=== PATIENT | female | born 1995 | race Caucasian/White ===

== ENCOUNTER 2020-01-06 03:59 | Inpatient (IN) | payer BC ==
[~2020-01-06 03:59] MED LIST: Bupivacaine 0.25% 10 ML SDV ONE
[2020-01-06] MEDS ORDERED: Lidocaine 1% 50 ML MDV INJECT ONE (04:56)
[2020-01-06] MEDS ORDERED: Nalbuphine 10 MG/ML Syringe IVPUSH PRN (04:56)
[2020-01-06] MEDS ORDERED: Sodium Chloride 0.9% 10 ML Syringe FLUSH PRN (04:56)
[2020-01-06] MEDS ORDERED: Oxytocin/Lactated Ringers 10 UNIT/1,000 ML BAG IV SCH ×2 (05:00)
[2020-01-06] MEDS ORDERED: ePHEDrine 50 MG/ML SDV IVPUSH PRN (07:28)
[2020-01-06] MEDS ORDERED: diphenhydrAMINE 50 MG/ML SDV IVPUSH PRN (07:28)
[2020-01-06] MEDS ORDERED: fentaNYL 100 MCG/2 ML SDV EPIDUR PRN (07:28)
[2020-01-06] MEDS ORDERED: Ondansetron 4 MG/2 ML SDV IVPUSH PRN (09:04)
[2020-01-06] MEDS: Lactated Ringers 1,000 ML IV SCH ×4 (12:39→21:53)
[2020-01-06] MEDS: Bupivacaine/fentaNYL/NS 100 ML Bag EPIDUR PRN ×2 (13:12→22:36)
--- NOTE | 2020-01-06 13:32 | PCM.PREANE ---
Preanesthetic Assessment - Procedure Proposed Procedure: epidural - Anesthesia/Transfusion/Family Hx Anesthesia History: No Prior Anesthesia Family History of Anesthesia Reaction: No Transfusion History: No Prior Transfusion(s) - Review of Systems General: Fatigue Pulmonary: No Symptoms Cardiovascular: No Symptoms Gastrointestinal: Abdominal Pain (labor) Neurological: No Symptoms Other: Reports: None - Physical Assessment Vital Signs: Last Vital Signs Temp 36.3 C 01/06/20 04:04 Pulse 92 01/06/20 04:04 Resp 16 01/06/20 04:04 BP 129/78 01/06/20 04:04 Pulse Ox 100 01/06/20 04:04 Height: 1.63 m Weight: 62.868 kg ASA Class: 2 Mental Status: Alert & Oriented x3 Airway Class: Mallampati = 1 Dentition: Reports: Normal Dentition Thyro-Mental Finger Breadths: 3 Mouth Opening Finger Breadths: 3 ROM/Head Extension: Full Lungs: Clear to Auscultation, Normal Respiratory Effort Cardiovascular: Regular Rate, Regular Rhythm - Lab Values: Laboratory Last Values WBC 12.15 K/mm3 (3.98-10.04) H 01/06/20 05:16 RBC 4.47 M/mm3 (3.98-5.22) 01/06/20 05:16 Hgb 12.8 gm/dl (11.2-15.7) 01/06/20 05:16 Hct 37.7 % (34.1-44.9) 01/06/20 05:16 MCV 84.3 fl (79.4-94.8) 01/06/20 05:16 MCH 28.6 pg (25.6-32.2) 01/06/20 05:16 MCHC 34.0 g/dl (32.2-35.5) 01/06/20 05:16 RDW Std Deviation 40.2 fL (36.4-46.3) 01/06/20 05:16 Plt Count 252 K/mm3 (182-369) 01/06/20 05:16 MPV 10.6 fl (9.4-12.3) 01/06/20 05:16 Neut % (Auto) 81.8 % (34.0-71.1) H 01/06/20 05:16 Lymph % (Auto) 9.5 % (19.3-51.7) L 01/06/20 05:16 [place] % (Auto) 6.4 % (4.7-12.5) 01/06/20 05:16 Eos % (Auto) 1.7 (0.7-5.8) 01/06/20 05:16 Baso % (Auto) 0.3 % (0.1-1.2) 01/06/20 05:16 Neut # (Auto) 9.93 K/mm3 (1.56-6.13) H 01/06/20 05:16 Lymph # (Auto) 1.15 K/mm3 (1.18-3.74) L 01/06/20 05:16 [place] # (Auto) 0.78 K/mm3 (0.24-0.36) H 01/06/20 05:16 Eos # (Auto) 0.21 K/mm3 (0.04-0.36) 01/06/20 05:16 Baso # (Auto) 0.04 K/mm3 (0.01-0.08) 01/06/20 05:16 Manual Slide Review Abnormal smear 01/06/20 05:16 Membrane Rupture Positive H 01/06/20 04:15 SARS-CoV-2 RNA (FABRICIO) Negative (NEGATIVE) 01/06/20 05:05 Blood Type B POSITIVE 01/06/20 05:16 Gel Antibody Screen Negative 01/06/20 05:16 - Allergies Allergies/Adverse Reactions: Allergies Allergy/AdvReac Type Severity Reaction Status Date / Time Cephalosporins Allergy Hives Verified 01/06/20 04:26 Penicillins Allergy Hives Verified 01/06/20 04:26 - Anesthesia Plan Pre-Op Medication Ordered: None - Acknowledgements Anesthesia Type Planned: Epidural Pt an Appropriate Candidate for the Planned Anesthesia: Yes Alternatives and Risks of Anesthesia Discussed w Pt/Guardian: Yes Pt/Guardian Understands and Agrees with Anesthesia Plan: Yes PreAnesthesia Questionnaire - Past Health History Medical/Surgical History: Denies Medical/Surgical History HEENT History: Reports: Impaired Vision Gastrointestinal History: Reports: GERD 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: - SUBSTANCE USE Smoking Status *Q: Never Smoker Second Hand Smoke Exposure: No Recreational Drug Use History: No - HOME MEDS Home Medications: Home Meds Ondansetron [Ondansetron Odt] 4 mg PO Q6HR PRN 01/06/20 [History] Vits #93/Iron Fum/FA [ Formula Tablet] 1 tab PO DAILY 01/06/20 [History] - CURRENT (IN HOUSE) MEDS Current Meds: Current Medications Diphenhydramine HCl (Benadryl) 25 mg IVPUSH Q6H PRN PRN Reason: pruritis Ephedrine Sulfate (Ephedrine Sulfate) 5 mg IVPUSH ASDIRECTED PRN PRN Reason: Hypotension Fentanyl (Sublimaze) 100 mcg EPIDUR Q3H PRN PRN Reason: Pain Last Admin: 01/06/20 13:11 Dose: 100 mcg Documented by: Fentanyl/Bupivacaine HCl (Fentanyl/Bupivacaine/Ns 2 Mcg-0.125% 100 Ml) 100 ml EPIDUR ASDIRECTED PRN PRN Reason: Pain Last Admin: 01/06/20 13:12 Dose: 100 ml Documented by: Lactated Ringer's (Ringers, Lactated) 1,000 mls @ 100 mls/hr IV ASDIRECTED ELLY Last Admin: 01/06/20 13:12 Dose: 999 mls/hr Documented by: Oxytocin/Lactated Ringer's (Pitocin In Lr 10 Units/1,000 Ml) 10 unit in 1,000 mls @ 12 mls/hr IV TITRATE ELLY; Protocol Oxytocin/Lactated Ringer's (Pitocin In Lr 10 Units/1,000 Ml) 10 unit in 1,000 mls @ 500 mls/hr IV .CONTINUOUS ELLY Nalbuphine HCl (Nubain) 10 mg IVPUSH Q2H PRN PRN Reason: Pain Ondansetron HCl (Zofran) 4 mg IVPUSH Q8H PRN PRN Reason: Nausea Sodium Chloride (Saline Flush) 10 ml FLUSH ASDIRECTED PRN PRN Reason: Keep Vein Open Discontinued Medications Lidocaine HCl (Xylocaine 1%) 1 ml INJECT ONETIME ONE Stop: 01/06/20 04:57
[2020-01-06] MEDS ORDERED: Lidocaine 1% 50 ML MDV ONE (23:19)
--- NOTE | 2020-01-06 23:54 | PCM.LDHP ---
L&D History of Present Illness - General Date of Service: 01/06/20 Admit Problem/Dx: Patient Status Order with Admit Dx/Problem 01/06/20 04:04 Patient Status [ADT] Routine 01/06/20 04:57 Patient Status [ADT] Routine Admission Diagnosis/Problem Admission Diagnosis/Problem 01/06/20 23:45 Mahnaz is a 24-year-old 1 para 0 white female who was admitted to labor and delivery 01/06/2020 at 37-1/7 weeks gestational age with an CECILIO of 01/26/2020 with spontaneous rupture membranes and early labor with cervical change. Source of Information: Patient History Limitations: Reports: No Limitations - History of Present Illness Introduction:: Mahnaz is a 24-year-old 1 para 0 white female who was admitted to labor and delivery 01/06/2020 at 37-1/7 weeks gestational age with an CECILIO of 01/26/2020 with spontaneous rupture membranes and early labor with some cervical change. She is gone from 2 cm on last evaluation clinic to 3 cm now. heart tones are reassuring. 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 CECILIO 01/26/2020 as based upon a certain last menstrual started 04/21/2019 and supported by at least 2 ultrasounds done on 06/28/2019 and 09/08/2019. course was relatively unremarkable. She is group B strep negative. [place] noninvasive screen was negative for trisomy 21, 18 and 13. Female was the identified gender identity. First visit was on 2028-5/7 weeks gestational age. She was seen on a regular basis throughout the . Her vital signs remained stable and fundal height growth was appropriate. Her weight increased from 114 to 146 pounds during the course of the . Patient had Tdap given on 11/29/2019. She has some nausea vomiting early in but this was manageable. [place] depression screen score was 3/30 on 09/14/2019. She desires epidural in labor delivery. She had an abnormal 1 hour GTT and 3-hour GTT was stopped after 2 normal evaluations secondary to nausea and emesis. She had menarche at age 14. Cycles q. 27 days. Last menstrual period was 04/21/2019. Cycles are regular and no control is being used at the time of conception. She is rubella immune. RPR was nonreactive. Tdap was given on 11/29/2019. Laboratory testing in shows a B+ blood type with a negative antibody screen. First hemoglobin is 14.0 g/dL and platelets are 321,000. She is rubella immune. RPR is nonreactive. Hepatitis B surface antigen and HIV assays were both negative. Chlamydia and gonorrhea tests were both negative. Pre-quell was negative. Second trimester labs showed a hemoglobin of 12.3 g/dL and platelets are 319,000 with a 1 hour GTT of 148. Her fasting blood sugar was 76 and her 1 hour was 64 on her 3-hour GTT. Group B strep screen was negative. RPR 10/17/2019 was nonreactive. Allergies: Cephalosporins and penicillins Medications: 1. Zofran as needed for nausea early in the 2. gummy bears daily. Past medical history: 1. Allergies to penicillin and cephalosporins 2. Asthma as a childis now outgrown this Past surgical history: Unremarkable Family history: Mother is alive and well as is her father. Maternal grandmother is alive with hypertension. Maternal grandfather is secondary to COPD, was a smoker and had diabetes. Paternal grandmother is alive with heart disease. Paternal grandfather is alive and well. There is no known family history of cancer, bleeding or blood clotting disorders, anesthesia related issu es or related problems. Review of systems: In general patient has no complaints other than SROM and early contractions. Skin: Negative Lungs: No infectious symptoms or shortness of breath Cardiovascular: No chest pain or exercise intolerance Breasts: No lumps, changes in size, pain, dimpling, discharge or axillary or supraclavicular concerns. GI: Negative : Changes associated with and now labor. Musculoskeletal: Negative Neurological: Negative Sickle exam: In general the patient is well-developed, well-nourished, pleasant female of stated age in no acute distress. On last evaluation clinic. Fundal height was 37 cm. Blood pressure is 118/58. Weight was 134.2 pounds and he was in a vertex presentation. Skin is warm dry without lesions. HEENT, neck and back within normal limits. Lungs are clear with good breath sounds in all lung peter. Cardiovascular exam shows regular and rhythm without murmurs. Breast exam deferred have been done at first visit and found to be normal. Abdomen is gravid with last fundal height in clinic at 37 cm. Genital exam per digital on admission was 3 cm, 90% effaced, 0 station, mid position, vertex presentation, soft Extremities and neurological exam are grossly within normal limits. 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: Reports: Social & Family History - Family History Family Medical History: Noncontributory - Tobacco Use Smoking Status *Q: Never Smoker Second Hand Smoke Exposure: No - Caffeine Use Caffeine Use: Reports: None - Recreational Drug Use Recreational Drug Use: No H&P Review of Systems - Review of Systems: Review Of Systems: See Below L&D Exam - Exam Exam: See Below - Vital Signs Vital Signs: Last Vital Signs Temp 36.3 C 01/06/20 04:04 Pulse 92 01/06/20 04:04 Resp 16 01/06/20 04:04 BP 129/78 01/06/20 04:04 Pulse Ox 100 01/06/20 04:04 Weight: 62.868 kg - Patient Data Lab Results Last 24 hrs: Laboratory Results - last 24 hr 01/06/20 01/06/20 01/06/20 Range/Units 04:15 05:05 05:16 WBC 12.15 H (3.98-10.04) K/mm3 RBC 4.47 (3.98-5.22) M/mm3 Hgb 12.8 (11.2-15.7) gm/dl Hct 37.7 (34.1-44.9) % MCV 84.3 (79.4-94.8) fl MCH 28.6 (25.6-32.2) pg MCHC 34.0 (32.2-35.5) g/dl RDW Std Deviation 40.2 (36.4-46.3) fL Plt Count 252 (182-369) K/mm3 MPV 10.6 (9.4-12.3) fl Neut % (Auto) 81.8 H (34.0-71.1) % Lymph % (Auto) 9.5 L (19.3-51.7) % [place] % (Auto) 6.4 (4.7-12.5) % Eos % (Auto) 1.7 (0.7-5.8) Baso % (Auto) 0.3 (0.1-1.2) % Neut # (Auto) 9.93 H (1.56-6.13) K/mm3 Lymph # (Auto) 1.15 L (1.18-3.74) K/mm3 [place] # (Auto) 0.78 H (0.24-0.36) K/mm3 Eos # (Auto) 0.21 (0.04-0.36) K/mm3 Baso # (Auto) 0.04 (0.01-0.08) K/mm3 Manual Slide Review Abnormal smear Membrane Rupture Positive H SARS-CoV-2 RNA (FABRICIO) Negative (NEGATIVE) Blood Type Gel Antibody Screen 01/06/20 Range/Units 05:16 WBC (3.98-10.04) K/mm3 RBC (3.98-5.22) M/mm3 Hgb (11.2-15.7) gm/dl Hct (34.1-44.9) % MCV (79.4-94.8) fl MCH (25.6-32.2) pg MCHC (32.2-35.5) g/dl RDW Std Deviation (36.4-46.3) fL Plt Count (182-369) K/mm3 MPV (9.4-12.3) fl Neut % (Auto) (34.0-71.1) % Lymph % (Auto) (19.3-51.7) % [place] % (Auto) (4.7-12.5) % Eos % (Auto) (0.7-5.8) Baso % (Auto) (0.1-1.2) % Neut # (Auto) (1.56-6.13) K/mm3 Lymph # (Auto) (1.18-3.74) K/mm3 [place] # (Auto) (0.24-0.36) K/mm3 Eos # (Auto) (0.04-0.36) K/mm3 Baso # (Auto) (0.01-0.08) K/mm3 Manual Slide Review Membrane Rupture SARS-CoV-2 RNA (FABRICIO) (NEGATIVE) Blood Type B POSITIVE Gel Antibody Screen Negative Result Diagrams: 01/06/20 05:16 Problem List Initiated/Reviewed/Updated: Yes Orders Last 24hrs: Active Orders 24 hr Category Date Time Status Patient Status Manage Transfer [TRANSFER] Routine ADT 01/06/20 23:36 Ordered Patient Status [ADT] Routine ADT 01/06/20 04:57 Active Activity as Tolerated [RC] PFP Care 01/06/20 04:56 Active Antiembolic Devices [RC] PER UNIT ROUTINE Care 01/06/20 13:09 Active Communication Order [RC] ASDIRECTED Care 01/06/20 04:56 Active Notify Provider [RC] ASDIRECTED Care 01/06/20 07:28 Active Notify Provider [RC] PFP Care 01/06/20 04:56 Active Notify Provider [RC] PRN Care 01/06/20 04:56 Active Peripheral IV Care [RC] Q2HR Care 01/06/20 04:57 Active Urinary Catheter Assessment [RC] ASDIRECTED Care 01/06/20 13:10 Active Urinary Catheter Insertion [Insert Urinary Catheter] [ Care 01/06/20 13:15 Ordered OM.PC] Q24H Regular Diet [DIET] Diet 01/06/20 Breakfast Active RAPID PLASMA REAGIN,RPR [CHEM] Routine Lab 01/06/20 04:56 Ordered Bupivacaine/fentaNYL/NS [fentaNYL/Bupivacaine/NS 2 MCG- Med 01/06/20 07:28 Active 0.125% 100 ML] 100 ml EPIDUR ASDIRECTED PRN Lactated Ringers [Ringers, Lactated] 1,000 ml Med 01/06/20 05:00 Active IV ASDIRECTED Nalbuphine [Nubain] Med 01/06/20 04:56 Active 10 mg IVPUSH Q2H PRN Ondansetron [Zofran] Med 01/06/20 09:04 Active 4 mg IVPUSH Q8H PRN Oxytocin/Lactated Ringers [Pitocin in LR 10 Units/1,000 Med 01/06/20 05:00 Active ML] 10 unit in 1,000 ml IV .CONTINUOUS Oxytocin/Lactated Ringers [Pitocin in LR 10 Units/1,000 Med 01/06/20 05:00 Active ML] 10 unit in 1,000 ml IV TITRATE Sodium Chloride 0.9% [Saline Flush] Med 01/06/20 04:56 Active 10 ml FLUSH ASDIRECTED PRN diphenhydrAMINE [Benadryl] Med 01/06/20 07:28 Active 25 mg IVPUSH Q6H PRN ePHEDrine [ePHEDrine sulfate] Med 01/06/20 07:28 Active 5 mg IVPUSH ASDIRECTED PRN fentaNYL [Sublimaze] Med 01/06/20 07:28 Active 100 mcg EPIDUR Q3H PRN Electronic Heart Tones Ext w TOCO [WOMSER] Oth 01/06/20 04:56 Ordered Routine Electronic Heart Tones Internal [WOMSER] Per Unit Oth 01/06/20 04:56 Ordered Routine Peripheral IV Insertion Adult [OM.PC] Routine Oth 01/06/20 04:56 Ordered SCD [Sequential Compression Device] [OM.PC] Routine Oth 01/06/20 13:08 Ordered Resuscitation Status Routine Resus Stat 01/06/20 04:04 Ordered Medication Orders Diphenhydramine HCl (Benadryl) 25 mg IVPUSH Q6H PRN PRN Reason: pruritis Ephedrine Sulfate (Ephedrine Sulfate) 5 mg IVPUSH ASDIRECTED PRN PRN Reason: Hypotension Fentanyl (Sublimaze) 100 mcg EPIDUR Q3H PRN PRN Reason: Pain Last Admin: 01/06/20 13:11 Dose: 100 mcg Documented by: AJAY Fentanyl/Bupivacaine HCl (Fentanyl/Bupivacaine/Ns 2 Mcg-0.125% 100 Ml) 100 ml EPIDUR ASDIRECTED PRN PRN Reason: Pain Last Admin: 01/06/20 22:36 Dose: 100 ml Documented by: Admin: 01/06/20 13:12 Dose: 100 ml Documented by: AJAY Lactated Ringer's (Ringers, Lactated) 1,000 mls @ 100 mls/hr IV ASDIRECTED ELLY Last Admin: 01/06/20 21:53 Dose: 100 mls/hr Documented by: Infusion: 01/06/20 21:53 Dose: 100 mls/hr Documented by: Admin: 01/06/20 14:35 Dose: 100 mls/hr Documented by: Infusion: 01/06/20 14:13 Dose: 999 mls/hr Documented by: Admin: 01/06/20 13:12 Dose: 999 mls/hr Documented by: Infusion: 01/06/20 13:12 Dose: 999 mls/hr Documented by: Admin: 01/06/20 12:39 Dose: 999 mls/hr Documented by: AJAY Oxytocin/Lactated Ringer's (Pitocin In Lr 10 Units/1,000 Ml) 10 unit in 1,000 mls @ 12 mls/hr IV TITRATE ELLY; Protocol Last Titration: 01/06/20 23:12 Dose: 166.5 munits/min, 999 mls/hr Documented by: Titration: 01/06/20 20:36 Dose: 6 munits/min, 36 mls/hr Documented by: Titration: 01/06/20 20:21 Dose: 4 munits/min, 24 mls/hr Documented by: Titration: 01/06/20 18:23 Dose: 2 munits/min, 12 mls/hr Documented by: Titration: 01/06/20 17:00 Dose: 3 munits/min, 18 mls/hr Documented by: Admin: 01/06/20 15:05 Dose: 2 munits/min, 12 mls/hr Documented by: AJAY Oxytocin/Lactated Ringer's (Pitocin In Lr 10 Units/1,000 Ml) 10 unit in 1,000 mls @ 500 mls/hr IV .CONTINUOUS ELLY Nalbuphine HCl (Nubain) 10 mg IVPUSH Q2H PRN PRN Reason: Pain Ondansetron HCl (Zofran) 4 mg IVPUSH Q8H PRN PRN Reason: Nausea Sodium Chloride (Saline Flush) 10 ml FLUSH ASDIRECTED PRN PRN Reason: Keep Vein Open Assessment/Plan Comment:: 1. 37-7-week intrauterine , SROM, early labor. CECILIO set at 01/26/2020. 2. Patient desires epidural in labor living 3. Patient plans to breast-feed 4. Low risk 5. [place] noninvasive screen was negative for trisomy 21, 18, 13. Female infant was identified on gender evaluation. 6. 3-hour GTT was aborted after 2 normal evaluations because of patient's nausea. 7. Group B strep screen negative 8. Patient is rubella immune. 9. Tdap given on 11/29/2019 Plan: 1. Anticipate normal spontaneous vaginal delivery 2. Epidural per patient desire 3. RPR, COVID testing, CBC upon admission per protocol 4. Support breast-feeding plan 5. Routine labor care.
--- NOTE | 2020-01-07 | PCM.SN.2 ---
- Free Text/Narrative Note: Delivery note: Mahnaz is a 24-year-old 1 now para 1-0-0-1 white female admitted on 01/06/2020 in active labor with spontaneous rupture membranes with resultant clear amniotic fluid. CECILIO is 01/26/2020 by LMP supported by 2 ultrasounds and course. She progressed in labor slowly over the first 12 hours, epidural was placed after some cervical dilation. Intrauterine pressure catheter was placed to evaluate contractions because of lack of adequate labor progress. With this contractions are felt to be suboptimal and Pitocin augmentation occurred. She progressed more rapidly and at approximately 2245 hrs. patient became completely dilated. She pushed for approximately 20 minutes and delivered a viable, draper, female infant with Apgars of 8 and 9, weight of 5 pounds 11 ounces, length of 19-1/2 inches in a direct occiput anterior. Delivery was unremarkable. Baby was placed on mom's abdomen, dried and nose mouth were bulb suctioned per routine. Cord is off to pulsate for 2 to 3 minutes. Umbilical cord had 3 vessels. Cord was then clamped and cut with by the baby's father Quentin. Cord blood was obtained. Pitocin was increased to 500 cc an hour to facilitate increase in uterine tone and decrease likelihood of bleeding. Second-degree laceration was identified and was repaired in a routine fashion using 3-0 Monocryl. The area of the perineum was infiltrated lidocaine 1% and a dosage of approximately 8 cc. Patient tolerated procedure well. Placenta delivered in a Velez presentation, appeared intact and complete and was discarded per patient desire. Estimated blood loss was 100 cc. Patient plans to breast-feed. Condition: Good.
[2020-01-07] MEDS ORDERED: Acetaminophen 325 MG Tab PO PRN (00:44)
[2020-01-07] MEDS ORDERED: Docusate Sodium 100 MG Cap PO PRN (00:44)
[2020-01-07] MEDS ORDERED: Benzocaine/Menthol 20%-0.5% Spray 56 GM Canister TOP PRN (00:44)
[2020-01-07] MEDS ORDERED: Witch Hazel Medicated Pads 40/Jar TOP PRN (00:44)
[2020-01-07] MEDS: Ibuprofen 600 MG Tab PO PRN ×4 (01:04→19:22)
--- NOTE | 2020-01-07 06:38 | PCM.SN.2 ---
- Free Text/Narrative Note: day 1: note: Patient is doing well in the period. Minimal lochia, voiding well, am bulated without problems. Nursing without concerns. Patient is afebrile, vital signs are stable Abdomen is flat, soft, uterus is below the umbilicus and is firm and nontender. Legs are nontender. Assessment: recovery going well. Plan: Routine care. Patient be discharged home within the next 24-48 hours.
[2020-01-07] MEDS: Prenatal Multivitamin with Calcium/Folic Acid/Iron Tab PO SCH (12:37)
--- NOTE | 2020-01-07 21:45 | PCM48HPAN ---
Post Anesthesia Note - EVALUATION WITHIN 48HRS OF ANESTHETIC Vital Signs in Normal Range: Yes Patient Participated in Evaluation: Yes Respiratory Function Stable: Yes Airway Patent: Yes Cardiovascular Function Stable: Yes Hydration Status Stable: Yes Pain Control Satisfactory: Yes Nausea and Vomiting Control Satisfactory: Yes Mental Status Recovered: Yes Vital Signs: Last Vital Signs Temp 36.7 C 01/07/20 20:39 Pulse 73 01/07/20 20:39 Resp 14 01/07/20 20:39 BP 106/80 01/07/20 20:39 Pulse Ox 98 01/07/20 20:39 - COMMENTS/OBSERVATIONS Free Text/Narrative:: no anesthesia complications noted
[2020-01-08] MEDS: Ibuprofen 600 MG Tab PO PRN (08:00)
[2020-01-08] MEDS: Prenatal Multivitamin with Calcium/Folic Acid/Iron Tab PO SCH (08:01)
--- NOTE | 2020-01-08 08:24 | PCM.DCSUM1 ---
Discharge Summary - Hospital Course Free Text/Narrative:: Mahnaz is a 24-year-old 1 now para 1-0-0-1 white female admitted on 01/06/2020 in active labor with spontaneous rupture membranes with resultant clear amniotic fluid. CECILIO is 01/26/2020 by LMP supported by 2 ultrasounds and course. She progressed in labor slowly over the first 12 hours, epidural was placed after some cervical dilation. Intrauterine pressure catheter was placed to evaluate contractions because of lack of adequate labor progress. With this contractions are felt to be suboptimal and Pitocin augmentation occurred. She progressed more rapidly and at approximately 2245 hrs. patient became completely dilated. She pushed for approximately 20 minutes and delivered a viable, draper, female with Apgars of 8 and 9, weight of 5 pounds 11 ounces, length of 19-1/2 inches in a direct occiput anterior. Delivery was unremarkable. Baby was placed on mom's abdomen, dried and nose mouth were bulb suctioned per routine. Cord is off to pulsate for 2 to 3 minutes. Umbilical cord had 3 vessels. Cord was then clamped and cut with by the baby's father Quentin. Cord blood was obtained. Pitocin was increased to 500 cc an hour to facilitate increase in uterine tone and decrease likelihood of bleeding. Second-degree laceration was identified and was repaired in a routine fashion using 3-0 Monocryl. The area of the perineum was infiltrated lidocaine 1% and a dosage of approximately 8 cc. Patient tolerated procedure well. Placenta delivered in a Velez presentation, appeared intact and complete and was discarded per patient desire. Estimated blood loss was 100 cc. Patient plans to continue to breast-feed. patient has done well. She has minimal lochia, is voiding well and ambulating without concerns. Breast-feeding is going well. She appears very comfortable with her course and is desiring discharge home. Condition: Good. Diagnosis: Stroke: No - Discharge Data Discharge Date: 01/08/20 Discharge Disposition: Home, Self-Care 01 Condition: Good - Referral to Home Health Primary Care Physician: Walker Marie MD - Patient Instructions Diet: Regular Diet as Tolerated (Nursing diet with increased calories and calcium as recommended) Activity: As Tolerated (No intercourse or tampons until bleeding resolves) Driving: May Drive Today Showering/Bathing: May Shower Showering/Bathing, Other: May take a bath Notify Provider of: Fever, Increased Pain, Swelling and Redness, Nausea and/or Vomiting - Discharge Plan Home Medications: Home Meds Vits #93/Iron Fum/FA [ Formula Tablet] 1 tab PO DAILY 01/06/20 [History] Acetaminophen [Tylenol] 650 mg PO Q4H PRN tablet 01/08/20 [Rx] Docusate Sodium [Colace] 100 mg PO BID PRN cap 01/08/20 [Rx] Ibuprofen [Motrin] 600 mg PO Q4H PRN tablet 01/08/20 [Rx] Patient Handouts: Breast Pumping Tips, and Self-Care, Care After Vaginal Delivery Referrals: Walker Marie MD [Primary Care Provider] - [facility] - Discharge Summary/Plan Comment DC Time >30 min.: No Discharge Summary/Plan Comment: Discharge instructions: 1. Discharge home 2. Diet, activity and follow-up discussed with patient. Recommend nursing diet with increased calories and calcium. 3. Precautions given concern increased pain, bleeding, temperature, signs/symptoms of DVT/PE. 4. Medications per home medication was printed, discussed with and given to the patient. 5. Return to clinic-Dr. Marie-[place], [place] in February 2020. Patient is to call for appointment. Diagnosis: [id number] -delivered Condition: Good - Patient Data Vitals - Most Recent: Last Vital Signs Temp 36.7 C 01/08/20 03:45 Pulse 63 01/08/20 03:45 Resp 13 01/08/20 03:45 BP 113/66 01/08/20 03:45 Pulse Ox 98 01/08/20 03:45 Weight - Most Recent: 62.868 kg Med Orders - Current: Current Medications Acetaminophen (Tylenol) 650 mg PO Q4H PRN PRN Reason: mild pain or fever Benzocaine/Menthol (Dermoplast Pain Relief [place]) 0 gm TOP ASDIRECTED PRN PRN Reason: Perineal Comfort Measure Last Admin: 01/07/20 01:03 Dose: 1 can Documented by: Docusate Sodium (Colace) 100 mg PO BID PRN PRN Reason: Constipation Last Admin: 01/07/20 01:04 Dose: 100 mg Documented by: Ibuprofen (Motrin) 600 mg PO Q4H PRN PRN Reason: Mild pain or fever Last Admin: 01/08/20 08:00 Dose: 600 mg Documented by: Prenat Multivit/Bleckley/Iron/Folic Ac ( Plus Iron) 1 each PO DAILY ELLY Last Admin: 01/08/20 08:01 Dose: Not Given Documented by: Romie Jackson (Mindy) 1 pad TOP ASDIRECTED PRN PRN Reason: Perineal Comfort Measure Last Admin: 01/07/20 01:03 Dose: 1 container Documented by: Discontinued Medications Diphenhydramine HCl (Benadryl) 25 mg IVPUSH Q6H PRN PRN Reason: pruritis Ephedrine Sulfate (Ephedrine Sulfate) 5 mg IVPUSH ASDIRECTED PRN PRN Reason: Hypotension Fentanyl (Sublimaze) 100 mcg EPIDUR Q3H PRN PRN Reason: Pain Last Admin: 01/06/20 13:11 Dose: 100 mcg Documented by: Fentanyl/Bupivacaine HCl (Fentanyl/Bupivacaine/Ns 2 Mcg-0.125% 100 Ml) 100 ml EPIDUR ASDIRECTED PRN PRN Reason: Pain Last Admin: 01/06/20 22:36 Dose: 100 ml Documented by: Lactated Ringer's (Ringers, Lactated) 1,000 mls @ 100 mls/hr IV ASDIRECTED ELLY Last Admin: 01/06/20 21:53 Dose: 100 mls/hr Documented by: Oxytocin/Lactated Ringer's (Pitocin In Lr 10 Units/1,000 Ml) 10 unit in 1,000 mls @ 12 mls/hr IV TITRATE ELLY; Protocol Last Titration: 01/06/20 23:12 Dose: 166.5 munits/min, 999 mls/hr Documented by: Oxytocin/Lactated Ringer's (Pitocin In Lr 10 Units/1,000 Ml) 10 unit in 1,000 mls @ 500 mls/hr IV .CONTINUOUS [facility] Lidocaine HCl (Xylocaine 1%) 1 ml INJECT ONETIME ONE Stop: 01/06/20 04:57 Last Admin: 01/06/20 23:22 Dose: 10 ml Documented by: Lidocaine HCl (Xylocaine 1%) Confirm Administered Dose 50 ml .ROUTE .STK-MED ONE Stop: 01/06/20 23:20 Last Admin: 01/07/20 01:22 Dose: Not Given Documented by: Nalbuphine HCl (Nubain) 10 mg IVPUSH Q2H PRN PRN Reason: Pain Ondansetron HCl (Zofran) 4 mg IVPUSH Q8H PRN PRN Reason: Nausea Sodium Chloride (Saline Flush) 10 ml FLUSH ASDIRECTED PRN PRN Reason: Keep Vein Open
== END 2020-01-08 12:20 | disposition home or self-care (01) | DRG 560 ==
LOC: JD.OB 03:59 → JD.OBCHECK 03:59 → JD.OB 04:57 → OBSVTOIN 23:11 → JD.OB 23:12
PROVIDERS: ADMIT Obstetrics & Gynecology; ATTEND Obstetrics & Gynecology
PROC: 10E0XZZ Delivery of Products of Conception, External Approach (ICD-10-PCS; principal; 2020-01-06)
PROC: 0KQM0ZZ Repair Perineum Muscle, Open Approach (ICD-10-PCS; 2020-01-06)
PROC: 3E0R3BZ Introduction of Anesthetic Agent into Spinal Canal, Percutaneous Approach (ICD-10-PCS; 2020-01-06)
PROC: 00HU33Z Insertion of Infusion Device into Spinal Canal, Percutaneous Approach (ICD-10-PCS; 2020-01-06)
DX: O99.62 Diseases of the digestive system complicating childbirth (principal); K21.9 Gastro-esophageal reflux disease without esophagitis; O70.1 Second degree perineal laceration during delivery; Z20.828 Contact with and (suspected) exposure to other viral communicable diseases; Z37.0 Single live birth; Z3A.37 37 weeks gestation of pregnancy; Z88.1 Allergy status to other antibiotic agents; Z88.0 Allergy status to penicillin
CPT/HCPCS: 01967; 36415; 51702; 59025; 59409; 84112; 85025; 86850; 86900; 86901; A9270-GY; J2001; J2590; J3010; J3490; J7120; U0002

== ENCOUNTER 2021-06-01 10:34 | Inpatient (IN) | payer BC ==
[2021-06-01] MEDS ORDERED: Nalbuphine 10 MG/1 ML Vial IVPUSH PRN (11:28)
[2021-06-01] MEDS ORDERED: Ondansetron 4 MG/2 ML SDV IVPUSH PRN (11:28)
[2021-06-01] MEDS ORDERED: Oxytocin/Lactated Ringers 10 UNIT/1,000 ML BAG IV SCH ×2 (11:30→20:36)
[2021-06-01] MEDS: Lactated Ringers 1,000 ML IV SCH ×2 (11:45→13:50)
[2021-06-01] MEDS ORDERED: fentaNYL 100 MCG/2 ML SDV EPIDUR PRN (12:52)
[2021-06-01] MEDS ORDERED: Bupivacaine/fentaNYL/NS 100 ML Bag EPIDUR PRN (12:52)
[2021-06-01] MEDS ORDERED: diphenhydrAMINE 50 MG/ML SDV IVPUSH PRN (12:52)
[2021-06-01] MEDS ORDERED: ePHEDrine 50 MG/ML SDV IVPUSH PRN (12:52)
[2021-06-01] MEDS ORDERED: Acetaminophen 325 MG Tab PO PRN (20:36)
[2021-06-01] MEDS ORDERED: Docusate Sodium 100 MG Cap PO PRN (20:36)
[2021-06-01] MEDS ORDERED: Hydrocortisone Acetate 25 MG Supp RECTAL PRN (20:36)
[2021-06-01] MEDS ORDERED: Witch Hazel Medicated Pads 40/Jar TOP PRN (20:36)
[2021-06-01] MEDS ORDERED: Benzocaine/Menthol 20%-0.5% Spray 78 GM Cannister TOP PRN (20:36)
[2021-06-01] MEDS ORDERED: Magnesium Hydroxide 400 MG/5 ML Susp 30 ML Cup PO PRN (20:36)
[2021-06-01] MEDS ORDERED: Ibuprofen 600 MG Tab PO PRN (20:36)
[2021-06-01] MEDS ORDERED: Sodium Chloride 0.9% 10 ML Syringe FLUSH SCH (21:00)
[2021-06-02] MEDS ORDERED: Prenatal Multivitamin with Calcium/Folic Acid/Iron Tab PO SCH (09:00)
== END 2021-06-03 16:55 | disposition home or self-care (01) | DRG 560 ==
LOC: JD.OBCHECK 10:34 → JD.OB 10:38 → JD.OBCHECK 11:29 → OBSVTOIN 16:04 → JD.OB 21:03
PROVIDERS: ADMIT Obstetrics & Gynecology; ATTEND Obstetrics & Gynecology
PROC: 10E0XZZ Delivery of Products of Conception, External Approach (ICD-10-PCS; principal; 2021-06-01)
PROC: 10907ZC Drainage of Amniotic Fluid, Therapeutic from Products of Conception, Via Natural or Artificial Opening (ICD-10-PCS; 2021-06-01)
PROC: 0KQM0ZZ Repair Perineum Muscle, Open Approach (ICD-10-PCS; 2021-06-01)
PROC: 3E0R3BZ Introduction of Anesthetic Agent into Spinal Canal, Percutaneous Approach (ICD-10-PCS; 2021-06-01)
PROC: 00HU33Z Insertion of Infusion Device into Spinal Canal, Percutaneous Approach (ICD-10-PCS; 2021-06-01)
DX: O99.62 Diseases of the digestive system complicating childbirth (principal); O70.1 Second degree perineal laceration during delivery; Z37.0 Single live birth; K21.9 Gastro-esophageal reflux disease without esophagitis; O69.81X0 Labor and delivery complicated by cord around neck, without compression, not applicable or unspecified; Z20.822 Contact with and (suspected) exposure to COVID-19; Z3A.38 38 weeks gestation of pregnancy; Z88.1 Allergy status to other antibiotic agents; Z88.0 Allergy status to penicillin
CPT/HCPCS: 36415; 51701; 59025; 59409; 84112; 85025; 86592; J2590; J3010; J7120; U0002

== ENCOUNTER 2023-02-18 08:52 | Emergency (ER) | payer BC ==
[2023-02-18] MEDS ORDERED: Sodium Chloride 0.9% 10 ML Syringe FLUSH PRN (09:42)
[2023-02-18] MEDS ORDERED: Sodium Chloride 0.9% 1,000 ML IV SCH (09:45)
[2023-02-18 10:44] LABS: BASOPHILS PERCENT AUTO 0.5 % (0.0-1.0); EOSINOPHILS ABSOLUTE AUTO 0.1 K/mm3 (0.0-0.4); EOSINOPHILS PERCENT AUTO 1.4 % (0.0-6.0); HEMATOCRIT 41.3 % (37.0-47.0); HEMOGLOBIN 14.5 gm/dl (12.0-16.0); IMMATURE GRAN ABSOLUTE AUTO 0.02 K/mm3 (0.00-0.05); IMMATURE GRAN PERCENT AUTO 0.2 % (0.0-0.4); LYMPHOCYTES ABSOLUTE AUTO 1.2 K/mm3 (1.0-4.8); LYMPHOCYTES PERCENT AUTO 13.9 % (24.0-44.0); MEAN CORPUSCULAR HGB CONC 35.1 g/dl (32.0-36.0); MEAN CORPUSCULAR VOLUME 85.5 fl (83.0-99.0); MEAN PLATELET VOLUME 9.9 fl (9.4-12.3); MONOCYTES ABSOLUTE AUTO 0.5 K/mm3 (0.0-0.8); MONOCYTES PERCENT AUTO 5.8 % (0.0-8.0); NEUTROPHILS ABSOLUTE AUTO 6.8 K/mm3 (1.8-7.7); NEUTROPHILS PERCENT AUTO 78.2 % (41.0-71.0); PLATELET COUNT,PLT 315 K/mm3 (150-400); RED BLOOD CELL COUNT 4.83 M/mm3 (4.10-5.30); WHITE BLOOD CELL COUNT,WBC 8.66 K/mm3 (3.9-11.3)
[2023-02-18 11:30] LABS: A/G RATIO 1.1 (1-2); ALBUMIN 4.3 g/dl (3.4-5.0); ANION GAP 14.6 (5-15); BILIRUBIN TOTAL 0.8 mg/dL (0.2-1.0); BUN/CREATININE RATIO 12.9 (14-18); CALCIUM 9.4 mg/dL (8.5-10.1); CREATININE 0.7 mg/dL (0.55-1.02); EST CRCL DRUG DOSING (CG) 102.21 mL/min; MAGNESIUM 1.8 mg/dL (1.8-2.4); POTASSIUM,K 3.6 mEq/L (3.5-5.1); PROTEIN TOTAL,TP 8.2 g/dl (6.4-8.2)
== END 2023-02-18 12:30 | disposition home or self-care (01) ==
LOC: JD.ED 08:52
DX: R00.2 Palpitations (principal); Z88.0 Allergy status to penicillin; Z88.1 Allergy status to other antibiotic agents
CPT/HCPCS: 36415; 80053; 83735; 84484; 85025; 85379; 93005; 99285; J3490; J7030; 93010; 99282

== ENCOUNTER 2023-12-20 00:05 | Inpatient (IN) | payer BC ==
[~2023-12-20 00:05] MED LIST changes: +ePHEDrine 50 MG/ML SDV ONE
[2023-12-20] MEDS ORDERED: Lidocaine 1% 50 ML MDV INJECT PRN (00:34)
[2023-12-20 00:54] LABS: BASOPHILS PERCENT AUTO 0.3 % (0.0-1.0); EOSINOPHILS ABSOLUTE AUTO 0.3 K/mm3 (0.0-0.4); EOSINOPHILS PERCENT AUTO 2.5 % (0.0-6.0); HEMATOCRIT 36.3 % (37.0-47.0); HEMOGLOBIN 11.6 gm/dl (12.0-16.0); IMMATURE GRAN ABSOLUTE AUTO 0.07 K/mm3 (0.00-0.05); IMMATURE GRAN PERCENT AUTO 0.6 % (0.0-0.4); LYMPHOCYTES ABSOLUTE AUTO 2.1 K/mm3 (1.0-4.8); LYMPHOCYTES PERCENT AUTO 17.1 % (24.0-44.0); MEAN CORPUSCULAR HEMOGLOBIN 26.1 pg (28.0-32.0); MEAN CORPUSCULAR VOLUME 81.6 fl (83.0-99.0); MEAN PLATELET VOLUME 9.9 fl (9.4-12.3); MONOCYTES ABSOLUTE AUTO 0.8 K/mm3 (0.0-0.8); MONOCYTES PERCENT AUTO 6.5 % (0.0-8.0); NEUTROPHILS ABSOLUTE AUTO 9.2 K/mm3 (1.8-7.7); PLATELET COUNT,PLT 269 K/mm3 (150-400); RED BLOOD CELL COUNT 4.45 M/mm3 (4.10-5.30); WHITE BLOOD CELL COUNT,WBC 12.53 K/mm3 (3.9-11.3)
[2023-12-20] MEDS ORDERED: ePHEDrine 50 MG/ML SDV IVPUSH PRN (00:55)
[2023-12-20] MEDS ORDERED: diphenhydrAMINE 50 MG/ML SDV IVPUSH PRN (00:55)
[2023-12-20] MEDS: fentaNYL 100 MCG/2 ML SDV EPIDUR PRN (01:02)
[2023-12-20] MEDS: Bupivacaine/fentaNYL/NS 100 ML Bag EPIDUR PRN (01:02)
[2023-12-20] MEDS: Lactated Ringers 1,000 ML IV SCH (01:03)
[2023-12-20] MEDS: Oxytocin/0.9 % Sodium Chloride 30 UNIT/500 ML BAG IV SCH (03:20)
[2023-12-20] MEDS ORDERED: Acetaminophen 325 MG Tab PO PRN (05:26)
[2023-12-20] MEDS ORDERED: Docusate Sodium 100 MG Cap PO PRN (05:26)
[2023-12-20] MEDS: Benzocaine/Menthol 20%-0.5% Spray 78 GM Cannister TOP PRN (05:35)
[2023-12-20] MEDS: Witch Hazel Medicated Pads 40/Jar TOP PRN (05:35)
[2023-12-20] MEDS: Ibuprofen 600 MG Tab PO SCH (06:00)
[2023-12-21] MEDS: Measles, Mumps & Rubella Vaccine 0.5 ML SDV SUBCUT ONE (09:54)
== END 2023-12-21 11:15 | disposition home or self-care (01) | DRG 560 ==
LOC: JD.OBCHECK 00:05 → JD.OB 00:14 → JD.OBCHECK 00:34 → OBSVTOIN 03:17 → JD.OB 03:18
PROVIDERS: ADMIT Obstetrics & Gynecology; ATTEND Obstetrics & Gynecology
PROC: 10E0XZZ Delivery of Products of Conception, External Approach (ICD-10-PCS; principal; 2023-12-20)
PROC: 3E0R3BZ Introduction of Anesthetic Agent into Spinal Canal, Percutaneous Approach (ICD-10-PCS; 2023-12-20)
PROC: 00HU33Z Insertion of Infusion Device into Spinal Canal, Percutaneous Approach (ICD-10-PCS; 2023-12-20)
DX: O42.02 Full-term premature rupture of membranes, onset of labor within 24 hours of rupture (principal); Z37.0 Single live birth; O69.81X0 Labor and delivery complicated by cord around neck, without compression, not applicable or unspecified; Z3A.39 39 weeks gestation of pregnancy; Z88.0 Allergy status to penicillin; Z88.1 Allergy status to other antibiotic agents; Z28.39 Other underimmunization status
CPT/HCPCS: 36415; 51701; 59025; 59409; 85025; 86592; A9270-GY; J0665; J3010; J3490; J7120; J7999